=== PATIENT | female | born 1960 | race Caucasian/White ===

== ENCOUNTER 2020-06-13 20:59 | Inpatient (IN) | payer BC ==
[~2020-06-13] VITALS: Ht 170.2 cm; Wt 79.4 kg
--- NOTE | 2020-06-13 21:26 | NUR ---
PT TO ED FOR FEVER, N/V, LOSS OF TASTE X 3 DAYS. PT STATES HER BROTHER IN LAW TESTED POSITIVE. PT STATES SHES BEEN UNABLE TO TAKE ANYTHING FOR FEVER D/T NAUSEA.
[2020-06-13] MEDS ORDERED: SODIUM CHLORIDE 0.9% 1,000ML IVBOLUS ONE (21:30)
[2020-06-13] MEDS ORDERED: ACETAMINOPHEN 500 MG TABLET ONE (21:40)
[2020-06-13] MEDS ORDERED: ONDANSETRON 2MG/ML, 2ML ONE (21:40)
[2020-06-13 21:52] LABS: BASOPHILS # (AUTO) 0.01 x10^3/uL (0-0.1); BASOPHILS % (AUTO) 0 % (0-1); EOSINOPHILS % (AUTO) 0 % (1-7); LYMPHOCYTES # (AUTO) 0.84 x10^3/uL (1-3.4); LYMPHOCYTES % (AUTO) 18 % (22-44); MD NO; MEAN CORPUSCULAR HEMOGLOBIN 30.1 pg (27.0-34.8); MEAN CORPUSCULAR HGB CONC 33.8 g/dL (32.4-35.8); MEAN PLATELET VOLUME 7.8 fL (7.4-10.4); MONOCYTES # (AUTO) 0.11 x10^3/uL (0.2-0.8); MONOCYTES % (AUTO) 2 % (2-9); NEUTROPHILS # (AUTO) 3.68 x10^3/uL (1.8-6.8); NEUTROPHILS % (AUTO) 79 % (42-75); PLATELET COUNT 178 x10^3/uL (130-400); RED BLOOD COUNT 4.72 x10^6/uL (3.82-5.3); RED CELL DISTRIBUTION WIDTH 13.1 % (9.6-15.2)
[2020-06-13] MEDS ORDERED: ONDANSETRON 2MG/ML, 2ML IVPush ONE (22:00)
[2020-06-13] MEDS ORDERED: ACETAMINOPHEN 500 MG TABLET PO ONE (22:00)
[2020-06-13 22:02] LABS: ALANINE AMINOTRANSFERASE 22 U/L (12-78); ALBUMIN 3.5 g/dL (3.4-5.0); ANION GAP 7 mmol/L (5-15); CALCIUM 8.5 mg/dL (8.5-10.1); CHLORIDE 101 mmol/L (98-107); CREATININE 0.71 mg/dL (0.55-1.02)
[2020-06-13 22:04] LABS: ALKALINE PHOSPHATASE 99 U/L (45-117); BILIRUBIN,TOTAL 0.5 mg/dL (0.2-1.0); TOTAL PROTEIN 7.3 g/dL (6.4-8.2)
[2020-06-13] MEDS ORDERED: PROMETHAZINE 25 MG/ML, 1ML IM ONE (23:00)
[2020-06-13] MEDS ORDERED: AZITHROMYCIN 500 MG in SODIUM CHLORIDE 0.9% 250 ML IV ONE (23:00)
[2020-06-13] MEDS ORDERED: METOCLOPRAMIDE 5 MG/ML, 2ML ONE (23:03)
--- NOTE | 2020-06-13 23:26 | NUR ---
ADMITTING AT BS.
--- NOTE | 2020-06-13 23:29 | NUR ---
STARTED ON ABX.
[2020-06-13] MEDS ORDERED: hydrALAzine 20 MG/ML, 1ML IVPush PRN (23:30)
[2020-06-13] MEDS ORDERED: AZITHROMYCIN 500 MG in SODIUM CHLORIDE 0.9% 250 ML IV SCH (23:30)
[2020-06-13] MEDS ORDERED: PROMETHAZINE 25 MG/ML, 1ML IM PRN (23:30)
[2020-06-13] MEDS ORDERED: CEFTRIAXONE PMX 1GM/50ML 50 ML IV SCH (23:30)
[2020-06-13] MEDS ORDERED: BISACODYL 10 MG SUPP PR PRN (23:30)
[2020-06-13] MEDS ORDERED: CEFTRIAXONE PMX 1GM/50ML 50 ML IV ONE (23:30)
[2020-06-13] MEDS ORDERED: POLYETHYLENE GLYCOL 17 GM PACKET PO PRN (23:30)
[2020-06-13] MEDS ORDERED: MELATONIN 5 MG TABLET PO PRN (23:30)
[2020-06-13] MEDS ORDERED: HYDROcodone/APAP 5/325 TABLET PO PRN (23:30)
[2020-06-13] MEDS ORDERED: OXYcodone IR 5MG TABLET PO PRN (23:30)
[2020-06-13] MEDS ORDERED: METOCLOPRAMIDE 5 MG/ML, 2ML IVPush ONE (23:30)
[2020-06-13] MEDS ORDERED: morphine SULFATE 10 MG/ML, 1ML IVPush PRN (23:30)
[2020-06-13] MEDS ORDERED: DIPHENHYDRAMINE 50 MG CAPSULE PO PRN (23:30)
[2020-06-13] MEDS ORDERED: LORazepam 2 MG/ML, 1ML ONE (23:54)
[2020-06-14] MEDS ORDERED: POTASSIUM CHLORIDE 40 MEQ in LACTATED RINGERS 1,000 ML IV SCH
[2020-06-14] MEDS: LORazepam 2 MG/ML, 1ML IVPush PRN ×3 (00:02→21:55)
[2020-06-14] MEDS ORDERED: ENOXAPARIN 40 MG/0.4 ML ONE (01:11)
[2020-06-14] MEDS ORDERED: CEFTRIAXONE PMX 1GM/50ML 50 ML ONE (01:12)
[2020-06-14] MEDS: ENOXAPARIN 40 MG/0.4 ML SQ SCH (01:19)
[2020-06-14 04:06] VITALS: BP 122/71
[2020-06-14 06:03] LABS: CALCIUM 7.8 mg/dL (8.5-10.1); CHLORIDE 105 mmol/L (98-107)
[2020-06-14 06:07] LABS: BASOPHILS % (AUTO) 0 % (0-1); EOSINOPHILS % (AUTO) 0 % (1-7); LYMPHOCYTES # (AUTO) 1.57 x10^3/uL (1-3.4); LYMPHOCYTES % (AUTO) 40 % (22-44); MD NO; MEAN CORPUSCULAR HEMOGLOBIN 30.4 pg (27.0-34.8); MEAN CORPUSCULAR HGB CONC 33.8 g/dL (32.4-35.8); MEAN PLATELET VOLUME 7.9 fL (7.4-10.4); MONOCYTES # (AUTO) 0.16 x10^3/uL (0.2-0.8); MONOCYTES % (AUTO) 4 % (2-9); NEUTROPHILS # (AUTO) 2.15 x10^3/uL (1.8-6.8); NEUTROPHILS % (AUTO) 55 % (42-75); PLATELET COUNT 155 x10^3/uL (130-400); RED BLOOD COUNT 4.04 x10^6/uL (3.82-5.3); RED CELL DISTRIBUTION WIDTH 13.4 % (9.6-15.2)
[2020-06-14 06:11] LABS: ANION GAP 6 mmol/L (5-15)
[2020-06-14 06:13] LABS: CREATININE 0.63 mg/dL (0.55-1.02)
[2020-06-14] MEDS ORDERED: ONDANSETRON 4 MG TABLET PO PRN (08:00)
[2020-06-14] MEDS: FAMOTIDINE 20 MG/2 ML IVPush SCH ×2 (08:36→20:22)
[2020-06-14] MEDS: THIAMINE 100MG TABLET PO SCH ×2 (08:37→20:22)
[2020-06-14] MEDS: CHOLECALCIFEROL 5,000u TAB PO SCH (08:37)
[2020-06-14] MEDS: DEXAMETHASONE 4 MG/ML, 1ML IVPush SCH (08:37)
[2020-06-14] MEDS: ZINC SULFATE 220 MG CAPSULE PO SCH (08:37)
[2020-06-14] MEDS: SENNA/DOCUSATE TABLET PO SCH (08:37)
[2020-06-14] MEDS: ONDANSETRON 2MG/ML, 2ML IVPush PRN (08:38)
[2020-06-14 09:10] VITALS: BP 114/76
[2020-06-14] MEDS: ASCORBIC ACID 250 MG TAB PO SCH ×2 (10:52→16:19)
[2020-06-14 12:25] VITALS: BP 109/66
[2020-06-14 20:27] VITALS: BP 125/79
[2020-06-15] MEDS: GUAIFENESIN/DM 200-20MG, 10ML UDC PO PRN ×2 (00:19→23:08)
[2020-06-15 00:22] VITALS: BP 111/71
[2020-06-15 06:42] LABS: BASOPHILS # (AUTO) 0.02 x10^3/uL (0-0.1); BASOPHILS % (AUTO) 0 % (0-1); EOSINOPHILS % (AUTO) 0 % (1-7); LYMPHOCYTES % (AUTO) 20 % (22-44); MD NO; MEAN CORPUSCULAR HEMOGLOBIN 29.6 pg (27.0-34.8); MEAN CORPUSCULAR HGB CONC 32.9 g/dL (32.4-35.8); MEAN PLATELET VOLUME 7.9 fL (7.4-10.4); MONOCYTES % (AUTO) 3 % (2-9); NEUTROPHILS # (AUTO) 5.02 x10^3/uL (1.8-6.8); NEUTROPHILS % (AUTO) 77 % (42-75); PLATELET COUNT 202 x10^3/uL (130-400); RED CELL DISTRIBUTION WIDTH 13.4 % (9.6-15.2)
[2020-06-15 06:46] LABS: CHLORIDE 103 mmol/L (98-107)
[2020-06-15 07:09] LABS: ALANINE AMINOTRANSFERASE 22 U/L (12-78); ALBUMIN 2.9 g/dL (3.4-5.0); ALKALINE PHOSPHATASE 80 U/L (45-117); ANION GAP 8 mmol/L (5-15); BILIRUBIN,TOTAL 0.4 mg/dL (0.2-1.0); CALCIUM 8.4 mg/dL (8.5-10.1); CREATININE 0.66 mg/dL (0.55-1.02); TOTAL PROTEIN 6.6 g/dL (6.4-8.2)
[2020-06-15 07:22] LABS: HCT (SEDRATE) 37.8 % (34.6-47.8)
[2020-06-15 07:56] VITALS: BP 127/82
[2020-06-15] MEDS: LACTATED RINGERS 1,000 ML IV SCH ×2 (08:13→21:03)
[2020-06-15] MEDS: DEXAMETHASONE 4 MG/ML, 1ML IVPush SCH (08:16)
[2020-06-15] MEDS: FAMOTIDINE 20 MG/2 ML IVPush SCH ×2 (08:17→21:02)
[2020-06-15] MEDS: ENOXAPARIN 40 MG/0.4 ML SQ SCH (08:18)
[2020-06-15] MEDS: SENNA/DOCUSATE TABLET PO SCH (08:22)
[2020-06-15] MEDS: LORazepam 2 MG/ML, 1ML IVPush PRN ×2 (08:37→23:07)
[2020-06-15] MEDS: ACETAMINOPHEN 325 MG TABLET PO PRN (08:40)
[2020-06-15] MEDS: THIAMINE 100MG TABLET PO SCH ×2 (09:34→21:02)
[2020-06-15] MEDS: ZINC SULFATE 220 MG CAPSULE PO SCH (10:52)
[2020-06-15] MEDS: ASCORBIC ACID 250 MG TAB PO SCH ×2 (10:52→17:01)
[2020-06-15] MEDS: CHOLECALCIFEROL 5,000u TAB PO SCH (10:53)
[2020-06-15 12:13] VITALS: BP 122/68
[2020-06-15 19:12] VITALS: BP 117/74
[2020-06-16 01:53] VITALS: BP 124/78
[2020-06-16 05:48] LABS: BASOPHILS # (AUTO) 0.01 x10^3/uL (0-0.1); BASOPHILS % (AUTO) 0 % (0-1); EOSINOPHILS % (AUTO) 0 % (1-7); LYMPHOCYTES # (AUTO) 0.94 x10^3/uL (1-3.4); LYMPHOCYTES % (AUTO) 13 % (22-44); MD NO; MEAN CORPUSCULAR HEMOGLOBIN 29.5 pg (27.0-34.8); MEAN PLATELET VOLUME 7.8 fL (7.4-10.4); MONOCYTES # (AUTO) 0.22 x10^3/uL (0.2-0.8); MONOCYTES % (AUTO) 3 % (2-9); NEUTROPHILS # (AUTO) 6.01 x10^3/uL (1.8-6.8); NEUTROPHILS % (AUTO) 84 % (42-75); PLATELET COUNT 235 x10^3/uL (130-400); RED BLOOD COUNT 4.03 x10^6/uL (3.82-5.3); RED CELL DISTRIBUTION WIDTH 12.8 % (9.6-15.2)
[2020-06-16 06:12] LABS: CHLORIDE 103 mmol/L (98-107)
[2020-06-16 06:41] LABS: ALANINE AMINOTRANSFERASE 23 U/L (12-78); ALBUMIN 2.6 g/dL (3.4-5.0); ALKALINE PHOSPHATASE 76 U/L (45-117); ANION GAP 7 mmol/L (5-15); BILIRUBIN,TOTAL 0.4 mg/dL (0.2-1.0); CALCIUM 8.3 mg/dL (8.5-10.1); CREATININE 0.66 mg/dL (0.55-1.02); TOTAL PROTEIN 6.1 g/dL (6.4-8.2)
[2020-06-16] MEDS: LACTATED RINGERS 1,000 ML IV SCH ×2 (06:54→17:03)
[2020-06-16] MEDS: LORazepam 2 MG/ML, 1ML IVPush PRN (06:54)
[2020-06-16] MEDS: FAMOTIDINE 20 MG/2 ML IVPush SCH ×2 (08:44→20:31)
[2020-06-16] MEDS: DEXAMETHASONE 4 MG/ML, 1ML IVPush SCH (08:44)
[2020-06-16] MEDS: ENOXAPARIN 40 MG/0.4 ML SQ SCH (08:45)
[2020-06-16] MEDS: ACETAMINOPHEN 325 MG TABLET PO PRN ×2 (08:45→17:03)
[2020-06-16 08:54] VITALS: BP 124/78
[2020-06-16] MEDS: METOCLOPRAMIDE 5 MG/ML, 2ML IVPush PRN (09:03)
[2020-06-16] MEDS: SENNA/DOCUSATE TABLET PO SCH (10:38)
[2020-06-16] MEDS: ZINC SULFATE 220 MG CAPSULE PO SCH (10:39)
[2020-06-16] MEDS: ASCORBIC ACID 250 MG TAB PO SCH ×2 (10:39→17:03)
[2020-06-16] MEDS: CHOLECALCIFEROL 5,000u TAB PO SCH (10:39)
[2020-06-16] MEDS: THIAMINE 100MG TABLET PO SCH ×2 (11:09→20:31)
[2020-06-16 14:30] VITALS: BP 124/77
[2020-06-16 19:48] VITALS: BP 132/77
[2020-06-16] MEDS: ENOXAPARIN 80 MG/0.8 ML SQ SCH (20:31)
[2020-06-17 00:13] VITALS: BP 128/80
[2020-06-17] MEDS: GUAIFENESIN/DM 200-20MG, 10ML UDC PO PRN (00:19)
[2020-06-17] MEDS: LACTATED RINGERS 1,000 ML IV SCH ×2 (02:35→13:19)
[2020-06-17] MEDS ORDERED: BENZONATATE 100 MG CAPSULE PO PRN (03:00)
[2020-06-17] MEDS: METOCLOPRAMIDE 5 MG/ML, 2ML IVPush PRN (05:40)
[2020-06-17 06:26] LABS: HCT (SEDRATE) 34.4 % (34.6-47.8)
[2020-06-17 06:29] LABS: BASOPHILS # (AUTO) 0.01 x10^3/uL (0-0.1); BASOPHILS % (AUTO) 0 % (0-1); EOSINOPHILS # (AUTO) 0.04 x10^3/uL (0-0.4); EOSINOPHILS % (AUTO) 1 % (1-7); LYMPHOCYTES # (AUTO) 1.19 x10^3/uL (1-3.4); LYMPHOCYTES % (AUTO) 16 % (22-44); MD NO; MEAN CORPUSCULAR HEMOGLOBIN 29.8 pg (27.0-34.8); MEAN CORPUSCULAR HGB CONC 33.3 g/dL (32.4-35.8); MEAN PLATELET VOLUME 7.5 fL (7.4-10.4); MONOCYTES # (AUTO) 0.29 x10^3/uL (0.2-0.8); MONOCYTES % (AUTO) 4 % (2-9); NEUTROPHILS # (AUTO) 5.78 x10^3/uL (1.8-6.8); NEUTROPHILS % (AUTO) 79 % (42-75); PLATELET COUNT 265 x10^3/uL (130-400); RED BLOOD COUNT 3.87 x10^6/uL (3.82-5.3); RED CELL DISTRIBUTION WIDTH 12.9 % (9.6-15.2)
[2020-06-17 06:37] LABS: CHLORIDE 101 mmol/L (98-107)
[2020-06-17 07:06] LABS: ALANINE AMINOTRANSFERASE 21 U/L (12-78); ALBUMIN 2.7 g/dL (3.4-5.0); ALKALINE PHOSPHATASE 70 U/L (45-117); ANION GAP 7 mmol/L (5-15); BILIRUBIN,TOTAL 0.5 mg/dL (0.2-1.0); CALCIUM 8.3 mg/dL (8.5-10.1); CREATININE 0.57 mg/dL (0.55-1.02); TOTAL PROTEIN 6.3 g/dL (6.4-8.2)
[2020-06-17] MEDS: FAMOTIDINE 20 MG/2 ML IVPush SCH ×2 (09:09→20:15)
[2020-06-17] MEDS: ONDANSETRON 2MG/ML, 2ML IVPush PRN (09:09)
[2020-06-17] MEDS: DEXAMETHASONE 4 MG/ML, 1ML IVPush SCH (09:10)
[2020-06-17] MEDS: ENOXAPARIN 80 MG/0.8 ML SQ SCH ×2 (09:18→20:15)
[2020-06-17 09:22] VITALS: BP 134/80
[2020-06-17] MEDS: ACETAMINOPHEN 325 MG TABLET PO PRN (10:46)
[2020-06-17] MEDS ORDERED: ASCORBIC ACID 500 MG TABLET PO SCH (11:43)
[2020-06-17] MEDS ORDERED: POTASSIUM CHLORIDE 20 MEQ in SODIUM CHLORIDE 0.9% 250 ML IV ONE (12:00)
[2020-06-17] MEDS: THIAMINE 100MG TABLET PO SCH ×2 (12:02→21:00)
[2020-06-17] MEDS: CHOLECALCIFEROL 5,000u TAB PO SCH (12:02)
[2020-06-17] MEDS: ZINC SULFATE 220 MG CAPSULE PO SCH (12:02)
[2020-06-17 13:05] VITALS: BP 143/85
[2020-06-17] MEDS: SENNA/DOCUSATE TABLET PO SCH (16:30)
[2020-06-17] MEDS: ASCORBATE SODIUM 3,000 MG in SODIUM CHLORIDE 0.9% 250 ML IVPB SCH ×2 (17:14→22:55)
[2020-06-17 19:20] VITALS: BP 150/72
[2020-06-17] MEDS ORDERED: FAMOTIDINE 20 MG TABLET PO SCH (21:00)
[2020-06-18 01:08] VITALS: BP 133/73
[2020-06-18] MEDS: LACTATED RINGERS 1,000 ML IV SCH ×3 (02:40→20:00)
[2020-06-18] MEDS: ASCORBATE SODIUM 3,000 MG in SODIUM CHLORIDE 0.9% 250 ML IVPB SCH ×4 (05:02→22:57)
[2020-06-18 06:17] LABS: BASOPHILS # (AUTO) 0.01 x10^3/uL (0-0.1); BASOPHILS % (AUTO) 0 % (0-1); EOSINOPHILS % (AUTO) 0 % (1-7); LYMPHOCYTES # (AUTO) 1.35 x10^3/uL (1-3.4); LYMPHOCYTES % (AUTO) 21 % (22-44); MD NO; MEAN CORPUSCULAR HEMOGLOBIN 29.7 pg (27.0-34.8); MEAN CORPUSCULAR HGB CONC 32.9 g/dL (32.4-35.8); MEAN PLATELET VOLUME 7.3 fL (7.4-10.4); MONOCYTES # (AUTO) 0.35 x10^3/uL (0.2-0.8); MONOCYTES % (AUTO) 5 % (2-9); NEUTROPHILS # (AUTO) 4.82 x10^3/uL (1.8-6.8); NEUTROPHILS % (AUTO) 74 % (42-75); PLATELET COUNT 321 x10^3/uL (130-400); RED BLOOD COUNT 3.89 x10^6/uL (3.82-5.3); RED CELL DISTRIBUTION WIDTH 13.3 % (9.6-15.2)
[2020-06-18 06:25] LABS: ALBUMIN 2.7 g/dL (3.4-5.0); ANION GAP 7 mmol/L (5-15); CALCIUM 8.5 mg/dL (8.5-10.1); CHLORIDE 103 mmol/L (98-107)
[2020-06-18 06:28] LABS: CREATININE 0.52 mg/dL (0.55-1.02)
[2020-06-18 08:22] VITALS: BP 147/88
[2020-06-18] MEDS: SENNA/DOCUSATE TABLET PO SCH (09:00)
[2020-06-18] MEDS: ZINC SULFATE 220 MG CAPSULE PO SCH (09:14)
[2020-06-18] MEDS: DEXAMETHASONE 4 MG/ML, 1ML IVPush SCH (09:14)
[2020-06-18] MEDS: CHOLECALCIFEROL 5,000u TAB PO SCH (09:15)
[2020-06-18] MEDS: FAMOTIDINE 20 MG/2 ML IVPush SCH ×2 (09:15→20:36)
[2020-06-18] MEDS: THIAMINE 100MG TABLET PO SCH ×2 (09:15→20:36)
[2020-06-18] MEDS: ENOXAPARIN 80 MG/0.8 ML SQ SCH ×2 (09:16→20:36)
[2020-06-18] MEDS: POTASSIUM CHLORIDE 20 MEQ in SODIUM CHLORIDE 0.9% 250 ML IV SCH ×2 (10:32→21:14)
[2020-06-18 13:19] VITALS: BP 144/75
[2020-06-18] MEDS: METOCLOPRAMIDE 5 MG/ML, 2ML IVPush PRN (13:40)
[2020-06-18 19:46] VITALS: BP 149/87
[2020-06-19 00:36] VITALS: BP 147/78
[2020-06-19] MEDS: ASCORBATE SODIUM 3,000 MG in SODIUM CHLORIDE 0.9% 250 ML IVPB SCH ×2 (04:50→10:53)
[2020-06-19] MEDS: LACTATED RINGERS 1,000 ML IV SCH (04:55)
[2020-06-19 05:49] LABS: BASOPHILS # (AUTO) 0.01 x10^3/uL (0-0.1); BASOPHILS % (AUTO) 0 % (0-1); EOSINOPHILS % (AUTO) 0 % (1-7); LYMPHOCYTES % (AUTO) 17 % (22-44); MD NO; MEAN CORPUSCULAR HGB CONC 33.6 g/dL (32.4-35.8); MEAN PLATELET VOLUME 7.4 fL (7.4-10.4); MONOCYTES # (AUTO) 0.43 x10^3/uL (0.2-0.8); MONOCYTES % (AUTO) 7 % (2-9); NEUTROPHILS # (AUTO) 4.95 x10^3/uL (1.8-6.8); NEUTROPHILS % (AUTO) 76 % (42-75); PLATELET COUNT 371 x10^3/uL (130-400); RED BLOOD COUNT 3.73 x10^6/uL (3.82-5.3); RED CELL DISTRIBUTION WIDTH 13.3 % (9.6-15.2)
[2020-06-19 05:59] LABS: CHLORIDE 102 mmol/L (98-107)
[2020-06-19 06:09] LABS: ALANINE AMINOTRANSFERASE 22 U/L (12-78); ALBUMIN 2.6 g/dL (3.4-5.0); ALKALINE PHOSPHATASE 62 U/L (45-117); ANION GAP 7 mmol/L (5-15); BILIRUBIN,TOTAL 0.4 mg/dL (0.2-1.0); CALCIUM 8.7 mg/dL (8.5-10.1); CREATININE 0.49 mg/dL (0.55-1.02)
[2020-06-19 08:09] VITALS: BP 151/80
[2020-06-19] MEDS: THIAMINE 100MG TABLET PO SCH (09:00)
[2020-06-19] MEDS: ZINC SULFATE 220 MG CAPSULE PO SCH (09:00)
[2020-06-19] MEDS: ENOXAPARIN 80 MG/0.8 ML SQ SCH (09:00)
[2020-06-19] MEDS: SENNA/DOCUSATE TABLET PO SCH (09:00)
[2020-06-19] MEDS: CHOLECALCIFEROL 5,000u TAB PO SCH (09:00)
[2020-06-19] MEDS: FAMOTIDINE 20 MG/2 ML IVPush SCH (09:01)
[2020-06-19] MEDS: DEXAMETHASONE 4 MG/ML, 1ML IVPush SCH (09:01)
[2020-06-19] MEDS: POTASSIUM CHLORIDE 20 MEQ in SODIUM CHLORIDE 0.9% 250 ML IV SCH (09:01)
[2020-06-19] MEDS ORDERED: ASCO500T9 PO (12:01)
[2020-06-19] MEDS ORDERED: CHOL500045 PO (12:01)
[2020-06-19] MEDS ORDERED: ZINC220C7 PO (12:01)
[2020-06-19] MEDS ORDERED: THIA100T67 PO (12:01)
[2020-06-19] MEDS ORDERED: BENZ-17 PO (12:01)
[2020-06-19 12:11] VITALS: BP 145/90
[2020-06-19] MEDS ORDERED: FLUT1AER INH (12:24)
[2020-06-19] MEDS ORDERED: FAMOTIDINE 20 MG TABLET PO SCH (21:00)
== END 2020-06-19 15:26 | disposition home or self-care (01) | DRG 871 ==
LOC: ED 23:49 → INTOOBSV 06-14 01:51 → EDIP 06-14 01:51 → UNDOADMOB 06-14 01:51 → EDIP 06-14 01:52 → 4NE 06-14 02:59 → EDIP 06-14 02:59 → 4NE 06-14 02:59 → OBSVTOIN 06-14 14:58
PROVIDERS: ADMIT Family Medicine; ATTEND Family Medicine
DX: A41.89 Other specified sepsis (principal); U07.1 COVID-19; J12.89 Other viral pneumonia; J96.01 Acute respiratory failure with hypoxia; J15.9 Unspecified bacterial pneumonia; E87.1 Hypo-osmolality and hyponatremia; E87.6 Hypokalemia; F41.9 Anxiety disorder, unspecified; J06.9 Acute upper respiratory infection, unspecified; R73.9 Hyperglycemia, unspecified; Z87.891 Personal history of nicotine dependence
CPT/HCPCS: 36415; 84145; 96374; 99285; J3490; 71045; 80048; 80053; 80069; 82728; 83605; 83615; 83735; 84443; 85025; 85379; 85651; 86140; 87040; 87205; 87635; 93005; G0378; J0456; J0696; J1100; J1650; J2405; J3480; Q0162; J2060; J2765; J7030; J7050; J7120